=== PATIENT | male | born 2000 | race Native Hawaiian/Other Pacific Islander ===

== ENCOUNTER 2022-11-16 02:30 | Emergency (ER) | payer BC ==
[~2022-11-16] VITALS: Ht 167.6 cm; Wt 68.0 kg
== END 2022-11-16 05:30 | disposition home health service (06) ==
LOC: ED 02:30
PROC: 2W3SX1Z Immobilization of Right Foot using Splint (ICD-10-PCS; principal; 2022-11-16)
DX: S92.491A Other fracture of right great toe, initial encounter for closed fracture (principal); W22.8XXA Striking against or struck by other objects, initial encounter
CPT/HCPCS: 99282; 99283